=== PATIENT | female | born 1995 | race African-American/Black ===

== ENCOUNTER 2021-08-05 21:12 | Emergency (ER) | payer MEDICAID ==
[~2021-08-05] VITALS: Ht 165.1 cm; Wt 118.0 kg
[2021-08-05 21:39] VITALS: BP 127/66
[2021-08-05] MEDS ORDERED: IBUP-2030 MT (23:57)
[2021-08-05] MEDS ORDERED: PENI500T MT (23:57)
== END 2021-08-06 00:14 | disposition home or self-care (01) ==
LOC: ER 21:12
DX: K02.9 Dental caries, unspecified (principal); K04.7 Periapical abscess without sinus
CPT/HCPCS: 99281